=== PATIENT | female | born 2000 | race Hispanic/Latino ===

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

== ENCOUNTER 2023-02-23 13:43 | Outpatient (CLI) | payer OTHER | END 2023-02-23 13:44 | disposition home or self-care (01) | LOC: BICULT 13:43 | PROVIDERS: ATTEND Nurse Practitioner Women's Health | DX: Z34.83 Encounter for supervision of other normal pregnancy, third trimester (principal); Z3A.31 31 weeks gestation of pregnancy | CPT/HCPCS: 76805 ==